=== PATIENT | female | born 1970 | race Caucasian/White ===

== ENCOUNTER 2022-08-02 15:26 | Emergency (ER) | payer OTHER, SELFPAY ==
[2022-08-02] VITALS (16 sets, daily range): BP systolic 90–123; BP diastolic 55–76; PULSE 58–75; RESP 15–18; TEMP 36.7; O2SAT 97–100; BMI 23.3
[2022-08-02 16:10] LABS: Acetaminophen < 10 ug/mL (10-30); Alanine Aminotransferase 29 IU/L (<35); Albumin 4.3 g/dL (3.5-5.0); Albumin Globulin Ratio 1.5 (1.0-2.8); Alkaline Phosphatase 46 U/L (38-126); Aspartate Aminotransferase 69 IU/L (14-36); BUN Creatinine Ratio 13.8 (6-22); Bilirubin Total 0.2 mg/dL (0.2-1.3); Blood Urea Nitrogen 8 mg/dL (7-17); Calcium 8.3 mg/dL (8.4-10.2); Carbon Dioxide 20 mmol/L (22-32); Chloride 106 mmol/L (98-107); Estimated Glomerular Filt Rate > 60 mL/min (>60); Globulin 2.9 g/dL (1.7-4.1); Glucose 88 mg/dL (70-100); HEMOLYSIS < 15 (0-50); Potassium 3.8 mmol/L (3.4-5.1); Salicylate < 1.0 mg/dL (<20); Sodium 141 mmol/L (137-145); Total Protein 7.2 g/dL (6.3-8.2)
[2022-08-02 16:13] LABS: Add Manual Diff / Slide Review NO; Basophils Absolute Auto 100 /uL (0-100); Basophils Percent Auto 0.7 % (0-2); Eosinophils Absolute Auto 0 /uL (0-450); Eosinophils Percent Auto 0.4 % (2-4); Hematocrit 37.6 % (36-46); Hemoglobin 12.6 g/dL (12.0-16.0); Lymphocytes Absolute Auto 2700 /uL (1100-4500); Lymphocytes Percent Auto 32.5 % (25-40); Mean Corpuscular HGB Conc 33.5 % (30-36); Mean Corpuscular Hemoglobin 29.7 PG (26-34); Mean Corpuscular Volume 88.6 fL (80-100); Monocytes Absolute Auto 500 /uL (0-900); Monocytes Percent Auto 6.5 % (3-14); Neutrophils Absolute Auto 5000 /uL (1500-7000); Neutrophils Percent Auto 59.9 % (50-75); Platelet Count 297 X10^3/uL (150-400); Red Blood Cell Count 4.24 X10^6/uL (4.0-5.2); White Blood Cell Count 8.3 X10^3/uL (4.5-11.0)
[2022-08-02 16:23] LABS: Ethanol (ETOH) 441 mg/dL
[2022-08-02 17:02] LABS: Appearance Urine UA CLEAR; Bilirubin Urine UA NEGATIVE (NEGATIVE); Color Urine UA YELLOW; Glucose Urine UA NEGATIVE (Negative); Ketones Urine UA NEGATIVE (NEGATIVE); Leukocyte Esterase Urine UA NEGATIVE (NEGATIVE); Nitrite Urine UA NEGATIVE (Negative); Occult Blood Urine UA 1+ (Negative); Protein Urine UA NEGATIVE (Negative); Specific Gravity Urine UA <=1.005 (1.000-1.035); Urobilinogen Urine UA 0.2 E.U./dL (0.2)
[2022-08-02 17:15] LABS: Thyroid Stimulating Hormone 0.603 uIU/mL (0.47-4.68)
[2022-08-02 17:21] LABS: Bacteria Urine None Seen; Culture Indicated Urine Cult Not Indicated; RBC Urine None Seen (0-5/HPF); WBC Urine None Seen (0-5/HPF)
--- NOTE | 2022-08-02 18:27 | ED_ITS ---
HPI - General Adult General Chief complaint: Toxicology Problem Stated complaint: VIV Time Seen by Provider: 08/02/22 18:01 Source: patient Mode of arrival: other (Police) Limitations: other (Intoxication) History of Present Illness HPI narrative: 52-year-old female who was brought in by [facility] department for evaluation of alcohol intoxication. According to the triage note the patient denied suicidal ideation however the reports from other individuals that at some point she did state that she was suicidal. My initial evaluation of the patient she was obviously intoxicated and would not/could not answer questions. Breathing was calm. No signs of trauma. She did deny any other ingestions besides alcohol. According to the triage note patient was seeking detox. Related Data Allergies Allergy/AdvReac Type Severity Reaction Status Date / Time No Known Drug Allergies Allergy Verified 08/02/22 15:31 Review of Systems Review of Systems Narrative: Very limited review of systems secondary to patient's level of intoxication. She did deny chest pain and shortness of breath and did admit to drinking alcohol otherwise would not/could not answer any review of systems questions Patient History Medical History Alcohol abuse Social History Smoking Status: Unknown if ever smoked Smoking Status: Unknown if ever smoked alcohol intake frequency: 3 or more drinks per day Alcohol type: wine Exam Initial Vital Signs Initial Vital Signs: Vital Signs Pulse Rate 71 08/02/22 15:26 Respiratory Rate 18 08/02/22 15:26 Blood Pressure 123/76 08/02/22 15:26 Pulse Oximetry 99 08/02/22 15:26 Oxygen Delivery Method 08/02/22 15:26 Const General: disheveled and No ill appearing HENMT Head: normal to inspection and normocephalic Resp Effort & Inspection: normal respiratory effort Auscultation: clear to auscultation bilaterally Cardio Rate: regular rate Rhythm: regular rhythm GI Inspection: normal to inspection Skin General: no rashes or lesions noted Neuro Other: Offset intoxicated, the words she did say were clear. She moves all 4 extremities equally. Extrem Other: No deformities Course Orders Ordered: ED Orders 08/02/22 15:40 Acetaminophen Stat Complete Blood Count AUTO DIFF Stat Comprehensive Metabolic Panel Stat Ethanol (ETOH) Stat Free T4, Direct Thyroxine Stat Salicylate Stat Thyroid Stimulating Hormone Stat 08/02/22 16:20 Urinalysis and Microscopic Stat Urine Drug Screen, Rapid Stat 08/02/22 18:20 Consult to [facility] [place] Community Resource Consultant Stat Discontinued Medications Thiamine HCl 100 mg/ Sodium (Chloride) 101 mls @ 404 mls/hr IV NOW ONE Stop: 08/02/22 18:21 Last Infusion: 08/02/22 19:07 Dose: 0 mls/hr Documented By: JULIO C Admin: 08/02/22 18:48 Dose: 404 mls/hr Documented By: JULIO C Sodium Chloride (Normal Saline 0.9%) 1,000 mls @ 1,000 mls/hr IV BOLUS ONE Stop: 08/02/22 23:18 Last Admin: 08/02/22 22:52 Dose: Not Given Documented By: JULIO C Vital Signs Vital signs: Vital Signs - 8 hr 08/02/22 17:57 08/02/22 17:58 08/02/22 17:58 Pulse Rate 75 73 Blood Pressure 90/58 L Pulse Oximetry 100 98 Oxygen Delivery Method Room Air 08/02/22 18:00 08/02/22 18:30 08/02/22 18:42 Pulse Rate 70 67 Blood Pressure 99/66 Pulse Oximetry 98 98 Oxygen Delivery Method Room Air 08/02/22 18:42 08/02/22 18:59 08/02/22 19:00 Pulse Rate 72 69 Blood Pressure 103/64 Pulse Oximetry 100 99 Oxygen Delivery Method 08/02/22 19:00 08/02/22 19:30 08/02/22 19:30 Pulse Rate 69 67 Blood Pressure 104/63 Pulse Oximetry 100 97 Oxygen Delivery Method Room Air Room Air 08/02/22 20:00 08/02/22 20:00 08/02/22 20:30 Pulse Rate 75 58 L Blood Pressure 104/64 Pulse Oximetry 97 100 Oxygen Delivery Method Room Air Room Air 08/02/22 21:00 08/02/22 21:30 08/02/22 21:30 Pulse Rate 72 69 Blood Pressure 90/55 L Pulse Oximetry 99 100 Oxygen Delivery Method Room Air Room Air 08/02/22 22:00 08/02/22 22:00 Pulse Rate 72 Blood Pressure 93/57 L Pulse Oximetry 99 Oxygen Delivery Method Room Air Medical Decision Making Lab Data Result diagrams: 08/02/22 15:40 08/02/22 15:40 Labs: Lab Results 01/01/1708/02/22 08/02/22 Range/Units 15:40 15:40 15:40 WBC 8.3 (4.5-11.0) X10^3/uL RBC 4.24 (4.0-5.2) X10^6/uL Hgb 12.6 (12.0-16.0) g/dL Hct 37.6 (36-46) % MCV 88.6 (80-100) fL MCH 29.7 (26-34) PG MCHC 33.5 (30-36) % RDW 14.0 (11.6-14.8) % Plt Count 297 (150-400) X10^3/uL Neut % (Auto) 59.9 (50-75) % Lymph % (Auto) 32.5 (25-40) % [place] % (Auto) 6.5 (3-14) % Eos % (Auto) 0.4 L (2-4) % Baso % (Auto) 0.7 (0-2) % Neut # (Auto) 5000 (9378-4149) /uL Lymph # (Auto) 2700 (2288-6171) /uL [place] # (Auto) 500 (0-900) /uL Eos # (Auto) 0 (0-450) /uL Baso # (Auto) 100 (0-100) /uL Sodium 141 (137-145) mmol/L Potassium 3.8 (3.4-5.1) mmol/L Chloride 106 (98-107) mmol/L Carbon Dioxide 20 L (22-32) mmol/L BUN 8 (7-17) mg/dL Creatinine 0.58 (0.52-1.04) mg/dL Estimated GFR > 60 (>60) mL/min BUN/Creatinine Ratio 13.8 (6-22) Glucose 88 (70-100) mg/dL Calcium 8.3 L (8.4-10.2) mg/dL Total Bilirubin 0.2 (0.2-1.3) mg/dL AST 69 H (14-36) IU/L ALT 29 (<35) IU/L Alkaline Phosphatase 46 (38-126) U/L Total Protein 7.2 (6.3-8.2) g/dL Albumin 4.3 (3.5-5.0) g/dL Globulin 2.9 (1.7-4.1) g/dL Albumin/Globulin Ratio 1.5 (1.0-2.8) TSH 0.603 (0.47-4.68) uIU/mL Free T4 1.00 (0.78-2.19) ng/dL Urine Color Urine Appearance Urine pH (4.5-8.0) Ur Specific [place] (1.000-1.035) Urine Protein (Negative) Urine Glucose (UA) (Negative) g/dL Urine Ketones (NEGATIVE) Urine Occult Blood (Negative) Urine Nitrate (Negative) Urine Bilirubin (NEGATIVE) Urine Urobilinogen (0.2) E.U./dL Ur Leukocyte Esterase (NEGATIVE) Urine RBC (0-5/HPF) Urine WBC (0-5/HPF) Urine Bacteria (None) Ur Culture Indicated? Salicylates < 1.0 (<20) mg/dL U Opiates 300ng/mL cut (Negative) Ur Oxycodone Screen (Negative) Urine Methadone Screen (Negative) Acetaminophen < 10 (10-30) ug/mL Ur Barbiturates Screen (Negative) U Tricyclic Antidepress (Negative) Ur Phencyclidine Scrn (Negative) Ur Amphetamines Screen (Negative) U Methamphetamines Scrn (Negative) Ur MDMA Scrn (Ecstasy) (Negative) U Benzodiazepines Scrn (Negative) Urine Cocaine Screen (Negative) U Marijuana (THC) Screen (Negative) Ethyl Alcohol 441 H* ( - 10) mg/dL 08/02/22 08/02/22 Range/Units 16:20 16:20 WBC (4.5-11.0) X10^3/uL RBC (4.0-5.2) X10^6/uL Hgb (12.0-16.0) g/dL Hct (36-46) % MCV (80-100) fL MCH (26-34) PG MCHC (30-36) % RDW (11.6-14.8) % Plt Count (150-400) X10^3/uL Neut % (Auto) (50-75) % Lymph % (Auto) (25-40) % [place] % (Auto) (3-14) % Eos % (Auto) (2-4) % Baso % (Auto) (0-2) % Neut # (Auto) (2554-3944) /uL Lymph # (Auto) (5676-8284) /uL [place] # (Auto) (0-900) /uL Eos # (Auto) (0-450) /uL Baso # (Auto) (0-100) /uL Sodium (137-145) mmol/L Potassium (3.4-5.1) mmol/L Chloride (98-107) mmol/L Carbon Dioxide (22-32) mmol/L BUN (7-17) mg/dL Creatinine (0.52-1.04) mg/dL Estimated GFR (>60) mL/min BUN/Creatinine Ratio (6-22) Glucose (70-100) mg/dL Calcium (8.4-10.2) mg/dL Total Bilirubin (0.2-1.3) mg/dL AST (14-36) IU/L ALT (<35) IU/L Alkaline Phosphatase (38-126) U/L Total Protein (6.3-8.2) g/dL Albumin (3.5-5.0) g/dL Globulin (1.7-4.1) g/dL Albumin/Globulin Ratio (1.0-2.8) TSH (0.47-4.68) uIU/mL Free T4 (0.78-2.19) ng/dL Urine Color Yellow Urine Appearance Clear Urine pH 5.0 (4.5-8.0) Ur Specific [place] <=1.005 (1.000-1.035) Urine Protein Negative (Negative) Urine Glucose (UA) Negative (Negative) g/dL Urine Ketones Negative (NEGATIVE) Urine Occult Blood 1+ H (Negative) Urine Nitrate Negative (Negative) Urine Bilirubin Negative (NEGATIVE) Urine Urobilinogen 0.2 (0.2) E.U./dL Ur Leukocyte Esterase Negative (NEGATIVE) Urine RBC None seen (0-5/HPF) Urine WBC None seen (0-5/HPF) Urine Bacteria None seen (None) Ur Culture Indicated? Cult not indicated Salicylates (<20) mg/dL U Opiates 300ng/mL cut Negative (Negative) Ur Oxycodone Screen Negative (Negative) Urine Methadone Screen Negative (Negative) Acetaminophen (10-30) ug/mL Ur Barbiturates Screen Negative (Negative) U Tricyclic Antidepress Negative (Negative) Ur Phencyclidine Scrn Negative (Negative) Ur Amphetamines Screen Negative (Negative) U Methamphetamines Scrn Negative (Negative) Ur MDMA Scrn (Ecstasy) Negative (Negative) U Benzodiazepines Scrn Negative (Negative) Urine Cocaine Screen Negative (Negative) U Marijuana (THC) Screen Negative (Negative) Ethyl Alcohol ( - 10) mg/dL MDM Narrative Medical decision making narrative: Patient's initial alcohol level significantly elevated. She slept in the emergency department for appeared of time and then woke up. Attempted multiple times to leave with her IV in place. I went in to evaluate the patient. Patient was alert to person and place. She knew what year was. She knew that she was in the hospital. She knew that she had been drinking. She knew the name of the president. She stated that she did not want to go to detox/rehab. She stated that she was not suicidal. Was not homicidal. She was talking in clear sentences. She was tolerating oral intake. She was walking in a straight line. Her IV was removed. I advised her multiple times that she should stay in the emergency department longer and offered her something to eat and also a warm blanket however she declined. The patient eloped. She left without being discharged. Discharge Plan Departure Patient Disposition: Left Against Medical Advice Clinical Impression: Alcoholic intoxication
[2022-08-02] MEDS: THIAMINE 100 MG in SODIUM CHLORIDE 0.9% 100 ML 404 MG IV (18:48)
[2022-08-02 19:53] LABS: UR Morphine/Opiate cutoff 300 Negative (Negative); Ur Creatinine Normal (Normal); Ur Specific Gravity Normal (Normal); Urine Amphetamines Negative (Negative); Urine Barbiturates Negative (Negative); Urine Benzodiazepines Negative (Negative); Urine Cocaine Negative (Negative); Urine MDMA Negative (Negative); Urine Methadone Negative (Negative); Urine Methamphetamines Negative (Negative); Urine Oxycodone Negative (Negative); Urine Phencyclidine Negative (Negative); Urine Tetrahydrocannabinol Negative (Negative); Urine Tricyclic Antidepressant Negative (Negative); Urine pH Normal (Normal)
--- NOTE | 2022-08-02 22:28 | PC.NURSE ---
Pt repetitivly attempting to leave department. When attempting to bring her back into department as pt c/o suicidal thoughts. Pt grabbed my wrists and dug her nails into my right wrist. Pt walked back to room according to CPI guidelines. Pt safely returned to bed. Dr. Mcconnell to bedside. who determined that pt is no longer suicidal.
--- NOTE | 2022-08-02 22:35 | PC.NURSE ---
Pt walks to the bathroom with a steady gait. Pt in room speaking with MD. Pt is oriented to place, day, situation and self. Pt is requesting to leave and plans to go back to her hotel in town. Pt removed per patient request and pt given phone to talk to her friend that lives on [facility]. Respirations are regular and unlabored. skin is warm, dry and intact. Pt denies SI/HI. Pt denies offer to see SW in the ED.
== END 2022-08-02 23:05 | disposition left against medical advice (07) ==
PROVIDERS: Emergency Medicine; Emergency Provider Emergency Medicine
DX: F10.129 Alcohol abuse with intoxication, unspecified (principal); Y90.8 Blood alcohol level of 240 mg/100 ml or more; Z53.29 Procedure and treatment not carried out because of patient's decision for other reasons
CPT/HCPCS: 36415; 80053; 80305; 80320; 80329; 81001; 84439; 84443; 85025; 96365; 99284; G0480

== ENCOUNTER 2022-08-03 10:58 | Emergency (ER) | payer OTHER, MEDICAID, SELFPAY ==
[2022-08-03 11:03] VITALS: BP 117/79; PULSE 83; RESP 16; TEMP 36.9; O2SAT 95; BMI 17.4
--- NOTE | 2022-08-03 12:00 | PC.NURSE ---
Pt unwilling to participate in CIWA questions.
[2022-08-03 12:02] VITALS: BP 111/70; PULSE 78; O2SAT 98
--- NOTE | 2022-08-03 12:18 | ED_ITS ---
HPI - Alcohol General Chief Complaint: Toxicology Problem Stated Complaint: ETOH Time Seen by Provider: 08/03/22 12:16 Mode of arrival: Ambulatory History of Present Illness HPI narrative: Patient is a 52-year-old known alcoholic who presents today by police. She was seen evaluated here yesterday. She reports that she has been sober for a long time she says she came to [place] and not a good mental state and started drinking at least 3-4 bottles of wine daily. She presented last night with possible thoughts of suicidal ideation she an alcohol level of441, she was monitored here in the emergency department and then clinically sober did not meet any sort of involuntary criteria. She was not suicidal or homicidal. She left and went back to the hotel. She reports that she started drinking again. Now she says that there is nothing for the emergency department to do. She does want detox but does not want it today. Her partner from the [facility] is coming to pick her up. She says that she was previously sober for a number of years she is heavily involved in AA. She says she just fell off the band way again. She has no thoughts of harming anyone else or herself. She does not want or need to be here today. She reports that she metabolizes alcohol very slowly and that she is not normal. Related Data Allergies Allergy/AdvReac Type Severity Reaction Status Date / Time No Known Drug Allergies Allergy Verified 08/02/22 15:31 Patient History Medical History Alcohol abuse Social History Smoking Status: Unknown if ever smoked Smoking Status: Unknown if ever smoked alcohol intake frequency: 3 or more drinks per day Alcohol type: wine Exam Initial Vital Signs Initial Vital Signs: Vital Signs Temperature 98.5 F 08/03/22 11:03 Pulse Rate 83 08/03/22 11:03 Respiratory Rate 16 08/03/22 11:03 Blood Pressure 117/79 08/03/22 11:03 Pulse Oximetry 95 08/03/22 11:03 Oxygen Delivery Method 08/03/22 11:03 GENERAL: Alert well-appearing 52-year-old thin female CARDIOVASCULAR: peripheral pulses in tact, cap refill <2 sec RESPIRATORY: No respiratory distress, speaks in full sentences without difficulty EXTREMITIES: Normal range of motion, no clubbing or edema. Neurovascularly intact NEUROLOGICAL: Cranial nerves II through XII grossly intact. Normal gait and speech. SKIN: Warm, dry, no petechiae, no rashes or lesions. Course Orders Ordered: ED Orders 08/03/22 11:29 Consult to [employer] WRITER OPERATOR - War[employer] Tier Stat Vital Signs Vital signs: Vital Signs - 8 hr 08/03/22 11:03 08/03/22 12:02 08/03/22 12:35 Temperature 98.5 F Pulse Rate 83 78 81 Respiratory Rate 16 17 Blood Pressure 117/79 111/70 106/59 L Pulse Oximetry 95 98 95 Oxygen Delivery Method Room Air Room Air Room Air MDM - Alcohol MDM Narrative Medical decision making narrative: Patient is a 52-year-old female known alcoholic unclear why she is here today. She is happy to find detox by herself. She denies any suicidal or homicidal ideations. She has support she has a home and money. She has a steady gait she has clear speech she is clinically sober at this time she denies drinking alcohol. Patient leaves prior to her discharge instructions. Discharge Plan Departure Patient Disposition: Home Clinical Impression: Alcoholic intoxication Instructions: DI for Alcohol Use Disorder Activity Restrictions/Additional Instructions: *You have been diagnosed with alcohol intoxication *What to do: Please call detox places so that you can detox. I do not recommend that you stop drinking alcohol . You will likely need monitoring *Continue to take medications as directed *Follow up with your primary care provider in 2-3 days or call [phone] *Return to ER if you should have shaking seizures or any new, worsening or concerning symptoms Referrals: Dedra,MD Eros [Primary Care Provider] - Stand Alone Forms: Patient Portal/API
--- NOTE | 2022-08-03 12:18 | PC.NURSE ---
Patient ambulated to restroom. Unsteady gait.
[2022-08-03 12:35] VITALS: BP 106/59; PULSE 81; RESP 17; O2SAT 95
--- NOTE | 2022-08-03 12:38 | CM.SWNOTE ---
HAMMER SHOP SUPERVISOR Note Patient is 52 y/o female who presents to ED via [employer] due to concern for ETOH use. Patient presented to ED yesterday with similar presentation with a BAL ETOH level of 441, patient eventually left against medical advice yesterday denying SI. Prior to this HAMMER SHOP SUPERVISOR enters room and after patient's evaluation from ED provider Dr. Tariq patient proceeds to leave AMA. Patient denies SI to ED provider and states she will receive ride from s/o. Patient did not pursue any medical clearance labs during this short stay in ED today. Plan: patient left ED AMA, patient denied AYESHA resources from ED provider, patient d/c'd to community. Tory Pearce, KAITARA TARAKA
== END 2022-08-03 12:42 | disposition home or self-care (01) ==
PROVIDERS: Emergency Provider Emergency Medicine
DX: F10.129 Alcohol abuse with intoxication, unspecified (principal)
CPT/HCPCS: 99281